=== PATIENT | female | born 1990 | race Two or more races ===

== ENCOUNTER 2019-03-31 09:00 | Emergency (ER) | payer MEDICAID ==
[~2019-03-31] VITALS: Ht 165.1 cm; Wt 77.1 kg
[2019-03-31 09:05] VITALS: BP 112/78
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
--- NOTE | 2019-03-31 09:20 | NUR ---
ED Nurse Note: Dr. Pate at bedside.
[2019-03-31] MEDS ORDERED: IBUPROFEN600 MG ORAL (09:26)
[2019-03-31 09:35] VITALS: BP 104/70
--- NOTE | 2019-03-31 09:35 | NUR ---
ER DISCHARGE NOTE: Patient cleared for DC by Dr. Pate. Patient AxO x 4, no s/s of acute distress. VSS. Patient verbalized understanding of DC instructions. ID band removed, patient walks with steady gait, all belongings with patient.
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
== END 2019-03-31 09:40 | disposition home or self-care (01) ==
LOC: EMR 09:40
DX: M54.6 Pain in thoracic spine (principal); M54.2 Cervicalgia; T14.8XXA Other injury of unspecified body region, initial encounter; X58.XXXA Exposure to other specified factors, initial encounter; Y92.811 Bus as the place of occurrence of the external cause
CPT/HCPCS: 99282